=== PATIENT | female | born 1940 | race Caucasian/White ===

== ENCOUNTER 2017-04-21 11:03 | Outpatient (CLI) | payer MEDICARE, BC ==
[~2017-04-21] VITALS: Ht 152.4 cm; Wt 60.9 kg
[~2017-04-21 11:03] MED LIST: COUMADIN5 MG PO; COUMADIN6 MG PO; TOPROL XL25 MG PO; ZANAFLEX4 MG PO
[2017-04-21 12:21] VITALS: BP 189/90; Ht 152.4 cm; Wt 60.9 kg
--- NOTE | 2017-04-21 13:45 | NUR ---
IV ATB INFUSION COMPLETED. S/L D/C'D CATH INTACT. PT AWAKE, ALERT, ORIENTED, SKIN PINK AND DRY.
--- NOTE | 2017-04-21 14:02 | NUR ---
D/C'D HOME AMBULATORY, ACCOMPANIED BY .
--- NOTE | 2017-04-21 14:06 | NUR ---
1355-IV INFUSIONS COMPLETE AND IV D/C. RESP WITH EASE. IV D/C. 1400-D/C HOME AMBULATORY FOR DENTAL APPOINTMENT.
== END 2017-04-21 14:00 | disposition home or self-care (01) ==
LOC: D.OPS 11:03
DX: Z95.2 Presence of prosthetic heart valve (principal)

== ENCOUNTER → 2017-08-24 08:21 | Outpatient (CLI) | payer MEDICARE, BC ==
[2017-04-21 12:21] VITALS: BMI 26.2
== END | disposition home or self-care (01) ==
LOC: D.MRI 08:21
DX: G20 Parkinson's disease (principal); R41.3 Other amnesia

== ENCOUNTER 2017-12-06 05:43 | Emergency (ER) | payer MEDICARE, OTHER ==
[2017-04-21 12:21] VITALS: BMI 26.2
[2017-12-06 06:05] LABS: BASOPHILS 0.1 % (0-2); EOSINOPHILS 0.9 % (0-7); HEMATOCRIT 40.1 % (36.0-48.0); HEMOGLOBIN 13.6 g/dL (12-16); IMMATURE GRANULOCYTES 0.3 % (0-5); LYMPHOCYTES 22.8 % (15-50); MCH 30.9 pg (26.0-34.0); MCHC 33.9 g/dL (31.0-37.0); MCV 91.1 fL (80.0-100.0); MEAN PLATELET VOLUME 9.8 fL (7.4-10.4); MONOCYTES 9.6 % (2-11); NEUTROPHILS 66.3 % (40-80); PLATELET COUNT 289 10x3/uL (130-400); RDW 12.9 % (11.5-14.5); WBC 9.4 10x3/uL (4.8-10.8)
[2017-12-06 06:12] LABS: INR 4.1 (0.85-1.17); PROTIME 38.9 SECONDS (11.6-15.0)
[2017-12-06 06:13] LABS: APTT 59.2 SECONDS (22.8-39.4)
[2017-12-06 06:22] LABS: ALBUMIN 3.3 g/dL (3.4-5.0); ALKALINE PHOSPHATASE 74 U/L (46-116); ALT (SGPT) 20 U/L (10-68); BILIRUBIN - TOTAL 0.71 mg/dL (0.2-1.3); CALC OSMOLALITY 266 mosm/kg (275-300); CALCIUM 8.6 mg/dL (8.5-10.1); CARBON DIOXIDE 22.7 mmol/L (21.0-32.0); CHLORIDE - SERUM 99 mmol/L (98-107); GLUCOSE 99 mg/dL (74-106); POTASSIUM - SERUM 3.9 mmol/L (3.5-5.1); PROTEIN - SERUM 6.9 g/dL (6.4-8.2); SODIUM 133 mmol/L (136-145); UREA NITROGEN 16 mg/dL (7-18); eGFR NON AFRICAN AMERICAN 57 mL/min (90-120)
[2017-12-06 06:44] LABS: CREATINE KINASE 225 UL (21-215); LIPASE 130 U/L (73-393); PRO BNP 277 pg/mL (0-450); TROPONIN-I < 0.017 ng/mL (0.000-0.060)
[2017-12-06 07:11] LABS: CKMB 4.3 U/L (0.0-3.6)
[2017-12-06 07:32] LABS: APPEARANCE CLEAR (CLEAR); COLOR YELLOW (YELLOW); GLUCOSE NEGATIVE (NEGATIVE); NITRITE NEGATIVE (NEGATIVE); PROTEIN NEGATIVE (NEGATIVE); SPECIFIC GRAVITY 1.005 (1.005-1.020)
[2017-12-06 07:33] LABS: BILIRUBIN NEGATIVE (NEGATIVE); KETONE SMALL mg/dL (NEGATIVE); UROBILINOGEN NORMAL (NORMAL)
[2017-12-06 07:36] LABS: UDS - AMPHET NEGATIVE QUAL (NEGATIVE); UDS - BARB NEGATIVE QUAL (NEGATIVE); UDS - BENZO NEGATIVE QUAL (NEGATIVE); UDS - COCAINE NEGATIVE QUAL (NEGATIVE); UDS - OPIATE NEGATIVE QUAL (NEGATIVE); UDS - PCP NEGATIVE QUAL (NEGATIVE); UDS - THC NEGATIVE QUAL (NEGATIVE)
== END 2017-12-06 08:10 | disposition home or self-care (01) ==
LOC: D.ER 05:43
PROVIDERS: Family Medicine
DX: R11.2 Nausea with vomiting, unspecified (principal); F41.9 Anxiety disorder, unspecified; N39.0 Urinary tract infection, site not specified; T50.905A Adverse effect of unspecified drugs, medicaments and biological substances, initial encounter; Y92.019 Unspecified place in single-family (private) house as the place of occurrence of the external cause; G20 Parkinson's disease; F03.90 Unspecified dementia, unspecified severity, without behavioral disturbance, psychotic disturbance, mood disturbance, and anxiety

== ENCOUNTER 2018-04-20 09:56 | Outpatient (CLI) | payer MEDICARE, OTHER ==
[~2018-04-20] VITALS: Ht 160 cm; Wt 56.8 kg
[2018-04-20 11:08] VITALS: BP 179/68; Ht 160 cm; Wt 56.8 kg
== END 2018-04-20 12:54 | disposition home or self-care (01) ==
LOC: D.OPS 09:56
DX: Z95.2 Presence of prosthetic heart valve (principal); Z01.812 Encounter for preprocedural laboratory examination

== ENCOUNTER → 2018-05-17 16:49 | Outpatient (CLI) | payer MEDICARE, OTHER ==
[2018-04-20 11:08] VITALS: BMI 22.1
== END | disposition home or self-care (01) ==
LOC: D.MAMMO 14:30
DX: N63.22 Unspecified lump in the left breast, upper inner quadrant (principal)

== ENCOUNTER → 2018-06-10 08:55 | Outpatient (CLI) | payer MEDICARE, OTHER ==
[2018-04-20 11:08] VITALS: BMI 22.1
[~2018-06-10 08:55] MED LIST changes: +NORCO 10-325 TA1 TAB PO
== END | disposition home or self-care (01) ==
LOC: D.US 05-28 10:00
DX: N63.21 Unspecified lump in the left breast, upper outer quadrant (principal)

== ENCOUNTER 2018-06-24 05:53 | Day surgery (SDC) | payer MEDICARE, OTHER ==
[~2018-06-24] VITALS: Ht 160 cm; Wt 51.8 kg
--- NOTE | ~2018-06-24 | OP ---
PATIENT NAME: PHYLLIS PEREZ MEDICAL RECORD: [id number] :42 LOCATION:[facility] ADMISSION DATE: SURGEON: DONTAE LOZADA MD DATE OF OPERATION: 06/24/2018 PREOPERATIVE DIAGNOSES: 1. Left breast cancer. 2. Parkinson's disease. 3. Coronary artery disease. 4. Aortic valvular disease. POSTOPERATIVE DIAGNOSES: 1. Left breast cancer. 2. Parkinson's disease. 3. Coronary artery disease. 4. Aortic valvular disease. PROCEDURE: Left lumpectomy with sentinel lymph node biopsy. SURGEON: Dontae Lozada MD REPORT OF PROCEDURE: The patient's left chest and axilla were prepped and draped in sterile fashion. Preoperatively, the patient had undergone lymphoscintigraphy. The patient had a palpable mass in the superior aspect of the breast at the 12 o'clock position. A transverse incision was made overlying this mass. Electrocautery was used to dissect through the subcutaneous tissues around the mass with care taken to assure that we had grossly negative margins in all directions. I continued this dissection down to the pectoral fascia. Once we had this mass and surrounding tissue completely excised, then it was marked appropriately and sent off for permanent specimen. We packed this wound. At this point, we went to the left axilla. We found the area where we had our highest reading and made an oblique incision overlying this. This was on the anterior and superior aspect of the patient's axilla. Using electrocautery, we dissected through the subcutaneous fatty tissues and through the axillary fascia. Once in the axillary space, we were able to pull up a lymph node that had a reading of 760. This lymph node was excised with clips placed on the ductal structures. This was sent off for permanent specimen. We then inspected the remainder of the axillary bed and could not find any other lymph nodes that had high enough readings to warrant removal. At this point, we irrigated out the wound with normal saline. The subcutaneous tissues and fascia were reapproximated with interrupted 3-0 Vicryl and the skin was closed with running subcutaneous 5-0 Monocryl. The breast was then inspected and any sign of any bleeding inside the tissue cavity was treated with electrocautery. We then irrigated out the wound with sterile water. The subcutaneous tissues were reapproximated with interrupted 3-0 Vicryl and the skin was closed with running subcutaneous 5-0 Monocryl. COMPLICATIONS: None. CONDITION: Stable. ANESTHESIA: General endotracheal. BLOOD LOSS: 30 mL. OPERATIVE REPORT [id number] PHYLLIS PEREZ TRANSINT:[id number] Voice Confirmation ID: [id number] DOCUMENT ID: [id number] DONTAE LOZADA MD at 1335 CC: LISSA WARREN MD [id number] DICTATION DATE: 06/24/18 1313 ELEVATOR CONSTRUCTOR: 06/24/18 1324 [facility] [place] 06/24/[address] [address]
[~2018-06-24 05:53] MED LIST changes: -NORCO 10-325 TA1 TAB PO
[2018-06-24 06:25] LABS: ANION GAP 11.7 mmol/L (8-16); CALCIUM 9.1 mg/dL (8.5-10.1); CARBON DIOXIDE 26.9 mmol/L (21.0-32.0); CREATININE - SERUM 0.8 mg/dL (0.6-1.3); POTASSIUM - SERUM 3.6 mmol/L (3.5-5.1)
[2018-06-24 06:37] LABS: APTT 28.2 SECONDS (22.8-39.4); INR 1.04 (0.85-1.17); PROTIME 13.3 SECONDS (11.6-15.0)
[2018-06-24 06:46] LABS: BASOPHILS 0.3 % (0-2); EOSINOPHILS 2.3 % (0-7); HEMATOCRIT 40.1 % (36.0-48.0); HEMOGLOBIN 13.1 g/dL (12-16); IMMATURE GRANULOCYTES 0.3 % (0-5); LYMPHOCYTES 23.5 % (15-50); MCH 30.2 pg (26.0-34.0); MCHC 32.7 g/dL (31.0-37.0); MCV 92.4 fL (80.0-100.0); MEAN PLATELET VOLUME 9.5 fL (7.4-10.4); MONOCYTES 14.3 % (2-11); NEUTROPHILS 59.3 % (40-80); PLATELET COUNT 320 10x3/uL (130-400); RBC 4.34 10x6/uL (4.00-5.40); RDW 13.4 % (11.5-14.5); WBC 7.4 10x3/uL (4.8-10.8)
[2018-06-24 07:09] VITALS: BP 156/85; Ht 160 cm; Wt 51.8 kg
[2018-06-24] MEDS ORDERED: NORCO 10-325 TA1 TAB PO (13:08)
== END 2018-06-24 15:40 | disposition home or self-care (01) ==
LOC: D.PAN 05:53 → D.NM 08:00 → D.PAN 15:40
PROVIDERS: Anesthesiology
DX: C50.812 Malignant neoplasm of overlapping sites of left female breast (principal); G20 Parkinson's disease; I25.10 Atherosclerotic heart disease of native coronary artery without angina pectoris; I35.9 Nonrheumatic aortic valve disorder, unspecified; Z01.812 Encounter for preprocedural laboratory examination

== ENCOUNTER → 2018-12-01 11:37 | Outpatient (CLI) | payer MEDICARE, OTHER ==
[2018-06-24 07:09] VITALS: BMI 20.2
[~2018-12-01 11:37] MED LIST changes: +NORCO 10-325 TA1 TAB PO
== END | disposition home or self-care (01) ==
LOC: D.RAD 11:00
PROVIDERS: ATTEND Family Medicine
DX: M25.532 Pain in left wrist (principal)

== ENCOUNTER 2019-05-03 09:29 | Outpatient (CLI) | payer MEDICARE, OTHER ==
[~2019-05-03] VITALS: Ht 147.3 cm; Wt 52.7 kg
[2019-05-03 10:33] VITALS: BP 152/80; Ht 147.3 cm; Wt 52.7 kg
== END 2019-05-03 12:30 | disposition home or self-care (01) ==
LOC: D.OPS 09:29
PROVIDERS: ATTEND Internal Medicine Cardiovascular Disease
DX: Z95.2 Presence of prosthetic heart valve (principal)

== ENCOUNTER → 2019-10-05 12:01 | Outpatient (CLI) | payer MEDICARE, OTHER ==
[2019-05-03 10:33] VITALS: BMI 24.3
--- NOTE | 2019-10-06 16:48 | EC ---
PATIENT:PHYLLIS PEREZ DATE OF SERVICE: 10/05/19 SEX: F MEDICAL RECORD: [id number] DATE OF : 42 LOCATION:D[facility] AGE OF PATIENT: 79 ADMISSION DATE: 10/05/19 REFERRING PHYSICIAN: INTERPRETING PHYSICIAN: EVANS BOOGIE MD ECHOCARDIOGRAM REPORT ECHO CHARGES 4 ECHO COMPLETE Date: 10/05/19 CLINICAL DIAGNOSIS: CAD/AVR HX OF MR/TR ECHOCARDIOGRAPHIC MEASUREMENTS (adult normal given) AC root (d.<3.7cm) 2.7 cm LV Septum d (<1.2 cm> 1.0 cm Valve Excursion 0.90 cm LV Septum (systole) 1.2 cm Left Atria (s.<4.0cm> 3.4 cm LVPW d(<1.2cm) 1.2 cm RV (d.<2.3cm) 4.5 cm LVPW (sytole) 1.4 cm LV diastole(<5.6CM) 4.9 cm MV E-F(>70mm/sec) cm LV systole 3.6 cm LVOT Diameter 1.4 cm MV exc.(>10mm) 0.80 cm Est.ejection fraction (50-75%) % DOPPLER: LVIT cm/sec A 116.0cm/sec E 56.0 cm/sec LA cm/sec RVSP 18 mmHg LVOT 160 cm/sec AOP1/2T m/s Asc. Ao 233 cm/sec RVOT cm/sec RA cm/sec PA cm/sec AV Gradient Peak 21.65mmHg AV Mean 11.56mmHg AV Area 1.1 cm MV Gradient Peak 8.18 mmHg MV Mean 2.39 mmHg MV Area cm COMMENTS: Boiler Fitter: 2 SERGEY TYSON Catch [place] Cleaner: 1 Dr. Boogie TAPE# PACS Pericardial Effusion N DATE OF SERVICE: ECHOCARDIOGRAM FINDINGS: 1. Left ventricular chamber size is within normal limits. Left ventricular systolic function is preserved at 55% to 60%. 2. Left atrium is within normal limits. Right atrium and right ventricular chamber sizes are mildly dilated. 3. Valvular structures: Aortic valve is replaced with mechanical prosthesis ECHOCARDIOGRAM REPORT [id number] PHYLLIS PEREZ with normal structure and function in this position. The remaining valvular structures have normal structure and motion. 4. Doppler interrogation reveals mild aortic insufficiency, mild tricuspid regurgitation, no other valvular insufficiency or stenosis. Pulmonary systolic pressure is normal estimated at 18 mmHg. 5. No evidence of pericardial effusion or left ventricular thrombus. TRANSINT:[id number] Voice Confirmation ID: [id number] DOCUMENT ID: [id number] EVANS BOOGIE MD at 1648 CC: [id number] DICTATION DATE: 10/06/19 0742 CHIEF WRITER: 10/06/19 1015 DEP CLI 10/05/19 [id number] [place] [address]
== END | disposition home or self-care (01) ==
LOC: D.HCCECHO 12:01
PROVIDERS: ATTEND Internal Medicine Interventional Cardiology
DX: I25.10 Atherosclerotic heart disease of native coronary artery without angina pectoris (principal)

== ENCOUNTER → 2020-10-16 11:04 | Outpatient (CLI) | payer MEDICARE, OTHER ==
[2019-05-03 10:33] VITALS: BMI 24.3
== END | disposition home or self-care (01) ==
LOC: D.HCCECHO 11:04
PROVIDERS: ATTEND Internal Medicine Cardiovascular Disease
DX: I25.10 Atherosclerotic heart disease of native coronary artery without angina pectoris (principal)

== ENCOUNTER 2020-10-26 11:30 | Emergency (ER) | payer MEDICARE, OTHER ==
[~2020-10-26] VITALS: Ht 147.3 cm; Wt 52.3 kg
[2020-10-26 11:42] VITALS: Ht 147.3 cm; Wt 52.3 kg
[2020-10-26 14:18] LABS: ANION GAP 10.9 mmol/L (8-16); BASOPHILS 0.2 % (0-2); CARBON DIOXIDE 25.8 mmol/L (21.0-32.0); HEMOGLOBIN 12.6 g/dL (12-16); IMMATURE GRANULOCYTES 0.2 % (0-5); LYMPHOCYTE ABS# 1.19 10x3/uL (1.18-3.74); LYMPHOCYTES 11.1 % (15-50); MCH 30.4 pg (26.0-34.0); MCHC 33.2 g/dL (31.0-37.0); MCV 91.8 fL (80.0-100.0); MEAN PLATELET VOLUME 9.7 fL (7.4-10.4); MONOCYTES 8.6 % (2-11); NEUTROPHIL ABS# 8.47 10x3/uL (1.56-6.13); NEUTROPHILS 78.9 % (40-80); POTASSIUM - SERUM 3.7 mmol/L (3.5-5.1); RBC 4.14 10x6/uL (4.00-5.40); RDW 13.2 % (11.5-14.5); WBC 10.7 10x3/uL (4.8-10.8)
[2020-10-26 14:20] LABS: INR 4.8 (0.85-1.17)
[2020-10-26 14:21] LABS: APTT 70.6 SECONDS (22.8-39.4)
[2020-10-26 14:24] LABS: ALBUMIN 3.6 g/dL (3.4-5.0); BILIRUBIN - TOTAL 0.88 mg/dL (0.2-1.3); PROTEIN - SERUM 7.4 g/dL (6.4-8.2)
[2020-10-26 14:25] LABS: PLATELET COUNT 241 10x3/uL (130-400)
[2020-10-26 14:42] VITALS: BP 142/63
[2020-10-26] MEDS ORDERED: HYDROCODON-ACE1 EAC7 PO (15:30)
== END 2020-10-26 15:59 | disposition home or self-care (01) ==
LOC: D.ER 11:30
PROVIDERS: Emergency Medicine
DX: S20.223A Contusion of bilateral back wall of thorax, initial encounter (principal); I10 Essential (primary) hypertension; W19.XXXA Unspecified fall, initial encounter; Y93.9 Activity, unspecified; Y92.9 Unspecified place or not applicable

== ENCOUNTER 2020-11-09 10:47 | Emergency (ER) | payer MEDICARE, OTHER ==
[~2020-11-09] VITALS: Ht 147.3 cm; Wt 52.7 kg
[~2020-11-09 10:47] MED LIST changes: +HYDROCODON-ACE1 EAC7 PO
[2020-11-09 10:57] VITALS: BP 173/76; Ht 147.3 cm; Wt 52.7 kg
[2020-11-09] MEDS ORDERED: METOPROLOL TART50 MG (11:00)
[2020-11-09 11:43] LABS: BASOPHILS 0.4 % (0-2); EOSINOPHILS 1.6 % (0-7); HEMATOCRIT 37.8 % (36.0-48.0); IMMATURE GRANULOCYTES 0.2 % (0-5); LYMPHOCYTES 15.6 % (15-50); MCH 30.2 pg (26.0-34.0); MCHC 31.7 g/dL (31.0-37.0); MEAN PLATELET VOLUME 9.4 fL (7.4-10.4); MONOCYTES 12.4 % (2-11); NEUTROPHIL ABS# 5.84 10x3/uL (1.56-6.13); NEUTROPHILS 69.8 % (40-80); RBC 3.98 10x6/uL (4.00-5.40); RDW 13.4 % (11.5-14.5); WBC 8.4 10x3/uL (4.8-10.8)
[2020-11-09 11:44] LABS: PLATELET COUNT 416 10x3/uL (130-400)
[2020-11-09 12:08] LABS: INR 4.31 (0.85-1.17); PROTIME 38.5 SECONDS (11.6-15.0)
== END 2020-11-09 15:11 | disposition left against medical advice (07) ==
LOC: D.ER 10:47
PROVIDERS: Emergency Medicine
DX: K92.2 Gastrointestinal hemorrhage, unspecified (principal)